=== PATIENT | male | born 1990 | race Caucasian/White ===

== ENCOUNTER 2017-08-20 04:39 | Emergency (ER) | payer SELFPAY ==
[~2017-08-20] VITALS: Ht 172.7 cm; Wt 77.2 kg
[~2017-08-20 04:39] MED LIST: DILANTIN100 MG PO; Dilantin PO; FIORICET,ESG1 TABLET PO; NAPROSYN500 MG PO; NOHOMEMEDS; TRILEPTAL300 MG PO; ULTRAM50 MG PO; ZOFRAN4 MG PO; no home meds
[2017-08-20 08:13] LABS: HEMATOCRIT 44.3 % (38.0-50.0); HEMOGLOBIN 15.5 G/DL (12.5-16.6); MCH 30.8 PG (29.0-34.0); MCV 88.1 FL (86-99); RBC DIS.WIDTH-SD 41.6 % (39-53); RED BLOOD COUNT 5.03 M/uL (4.00-5.50); WHITE BLOOD COUNT 15.8 K/uL (4.1-10.2)
[2017-08-20 08:34] LABS: ALBUMIN 4.7 G/DL (3.2-4.8); CHLORIDE 108 MEQ/L (99-109); SODIUM 141 MEQ/L (136-147); TOTAL BILIRUBIN 0.3 MG/DL (0.0-1.0)
[2017-08-20 08:40] LABS: ALKALINE PHOSPHATASE 65 IU/L (3-129); ALT (GPT) 57 IU/L (3-49); AST (GOT) 32 IU/L (2-34); GFR ESTIMATE (CALCULATED) > 59 mL/min/ (58.99-99999); GLUCOSE 101 mg/dL (70-99); SERUM ETHYL ALCOHOL 108 mg/dL; TOTAL PROTEIN 7.5 G/DL (6.4-8.3); UREA NITROGEN (BUN) 13 mg/dL (9-23)
[2017-08-20 08:51] LABS: PLAT.SUFFICIENCY ADEQUATE; PLATELET COUNT 169 K/uL (156-360)
[2017-08-20 09:54] LABS: AMPHETAMINE NEGATIVE (500 ng/mL); BARBITURATES NEGATIVE (200 ng/mL); BENZODIAZEPINES NEGATIVE (150 ng/mL); BUPRENORPHINE NEGATIVE (10 ng/mL); COCAINE NEGATIVE (150 ng/mL); METHADONE NEGATIVE (200 ng/mL); METHAMPHETAMINE NEGATIVE (500 ng/mL); OPIATES (MORPHINE) NEGATIVE (100 ng/mL); OXYCODONE NEGATIVE (100 ng/mL); PHENCYCLIDINE NEGATIVE (25 ng/mL); PROPOXYPHENE NEGATIVE (300 ng/mL); THC CANNABINOIDS NEGATIVE (50 ng/mL); TRICYCLIC ANTIDEPRESSANTS NEGATIVE (300 ng/mL)
[2017-08-20 10:29] VITALS: BP 122/62
== END 2017-08-20 10:56 | disposition home or self-care (01) ==
LOC: EME 04:39
PROVIDERS: Nurse Practitioner Family
DX: F10.129 Alcohol abuse with intoxication, unspecified (principal); Y90.5 Blood alcohol level of 100-119 mg/100 ml; F17.210 Nicotine dependence, cigarettes, uncomplicated; J45.909 Unspecified asthma, uncomplicated; F90.9 Attention-deficit hyperactivity disorder, unspecified type; F41.9 Anxiety disorder, unspecified
CPT/HCPCS: 80053; 85027; 99281; 99284; G0480